=== PATIENT | female | born 1985 | race African-American/Black ===

== ENCOUNTER 2021-10-08 17:44 | Emergency (ER) | payer OTHER, SELFPAY ==
[2021-10-08] MEDS ORDERED: Ibuprofen 200 MG TAB ONE (19:30)
[2021-10-08] MEDS ORDERED: Acetaminophen 500 MG TAB ONE (19:30)
== END 2021-10-08 20:34 | disposition home or self-care (01) ==
LOC: CSHERS 17:44
DX: R07.81 Pleurodynia (principal)
CPT/HCPCS: 71045; 93005